=== PATIENT | male | born 2000 | race Two or more races ===

== ENCOUNTER 2024-07-05 22:33 | Emergency (ER) | payer OTHER ==
[~2024-07-05] VITALS: Ht 170.2 cm; Wt 79.4 kg
[2024-07-06] MEDS ORDERED: POVIDONE-IODINE 118 ML BOTT TOP ONE (00:03)
[2024-07-06] MEDS ORDERED: TETANUS DIPHTHERIA TOX. ADSOR 5 ML VIAL IM ONE (01:07)
[2024-07-06] MEDS ORDERED: TETANUS & DIPHTHERIA TOX,ADULT 0.5 ML VIAL IM ONE (01:15)
== END 2024-07-06 01:33 | disposition home or self-care (01) ==
LOC: ER 22:35
DX: S81.822A Laceration with foreign body, left lower leg, initial encounter (principal); W18.39XA Other fall on same level, initial encounter; Y93.89 Activity, other specified; Y92.832 Beach as the place of occurrence of the external cause
CPT/HCPCS: 12001; 90471; 90714; J1670

== ENCOUNTER → 2024-07-11 | Emergency (ER) | payer OTHER ==
[~2024-07-11] VITALS: Ht 167.6 cm; Wt 81.6 kg
== END | disposition left against medical advice (07) ==
LOC: ER 23:15
DX: Z53.21 Procedure and treatment not carried out due to patient leaving prior to being seen by health care provider (principal)

== ENCOUNTER → 2024-07-13 | Emergency (ER) | payer OTHER ==
[~2024-07-13] VITALS: Ht 170.2 cm; Wt 79.4 kg
== END | disposition home or self-care (01) ==
LOC: ER 09:52
DX: Z48.02 Encounter for removal of sutures (principal); T14.90XD Injury, unspecified, subsequent encounter